=== PATIENT | male | born 1975 | race Caucasian/White ===

== ENCOUNTER 2020-06-24 04:48 | Emergency (ER) | payer SELFPAY ==
[~2020-06-24] VITALS: Ht 167.7 cm; Wt 68.9 kg
[2020-06-24 05:12] LABS: BILIRUBIN,URINE 1+ (NEGATIVE); CLARITY,URINE SL CLOUDY; COLOR,URINE YELLOW; GLUCOSE, URINE (UA) NEGATIVE (NEGATIVE); KETONES,URINE NEGATIVE (NEGATIVE); LEUKOCYTE ESTERASE ,URINE NEGATIVE (NEGATIVE); NITRITE,URINE NEGATIVE (NEGATIVE); PH,URINE 5.5 (5-9); PROTEIN,URINE 1+ (NEGATIVE)
--- NOTE | 2020-06-24 05:29 | ED GU-Male ---
General Chief Complaint: - Urinary Stated Complaint: HUERTA WHEN URINATING Nursing Triage Note: Pt arrived by private vehicle with chief complaint of burning when urinating. Pt was alert, oriented x 4 and ambulatory. At arrival, patient gave a urine sample, then when to room 10. Pt stated he started having burning when urinating 3 days ago. Pt stated the pain comes and goes, but currently does not have any pain. Pt stated maybe he is dehydrated. When asking about sexual intercourse, he stated with the lady next door. Patient denies past medical history and allergies to medications. Pt denies smoking, drinking alcohol, but does use meth and marijuana. Source: patient Exam Limitations: no limitations History of Present Illness Date Seen by Provider: Jun 24, 2020 Time Seen by Provider: 05:02 Initial Comments Patient presents ER by private conveyance with chief complaint he has been having intercourse past 3 or 4 days with a person who has had some discharge. He's had some mild dysuria but nothing severe. No swelling in the lymph nodes. No history of STDs. No hematuria. Allergies and Home Medications Allergies Coded Allergies: No Known Drug Allergies (Unverified , 06/24/20) Home Medications Metronidazole 500 Mg Tablet, 500 MG PO BID Prescribed by: ROBIN FARR on 06/24/20 0550 Patient Home Medication List Home Medication List Reviewed: Yes Review of Systems Review of Systems Constitutional: No chills, No fever EENTM: No ear discharge, No ear pain Respiratory: No cough, No short of breath Cardiovascular: No chest pain, No palpitations Gastrointestinal: No abdominal pain, No nausea Genitourinary: see HPI; denies discharge; dysuria All Other Systemes Reviewed Negative Unless Noted: Yes Past Nlmvqgt-Pkqetp-Ogcgey Hx Patient Social History Alcohol Use: Denies Use Recreational Drug Use: Yes (Meth, marijuana) Smoking Status: Never a Smoker 2nd Hand Smoke Exposure: No Recent Foreign Travel: No Contact w/Someone Who Travel: No Recent Infectious Disease Expo: No Recent Hopitalizations: No Physical Abuse: No Sexual Abuse: No Mistreated: No Fear: No Seasonal Allergies Seasonal Allergies: No Past Medical History Surgeries: No Respiratory: No Cardiac: No Neurological: No Genitourinary: No Gastrointestinal: No Musculoskeletal: No Endocrine: No HEENT: No Cancer: No Psychosocial: No Integumentary: No Blood Disorders: No Physical Exam Vital Signs Vital Signs - First Documented 06/24/20 05:05 Temp 35.5 Pulse 105 Resp 16 B/P (MAP) 158/103 (121) Pulse Ox 99 O2 Delivery Room Air Capillary Refill : Less Than 3 Seconds Height, Weight, BMI Height: '" Weight: lbs. oz. kg; 24.00 BMI Method: General Appearance: WD/WN, no apparent distress HEENT: PERRL/EOMI, pharynx normal Neck: non-tender, full range of motion Cardiovascular: normal peripheral pulses, regular rate, rhythm, tachycardia Respiratory: no respiratory distress, no accessory muscle use Neurologic/Psychiatric: alert, oriented x 3, other (mildly anxious affect) Progress/Results/Core Measures Suspected Sepsis Recent Fever Within 48 Hours: No Infection Criteria Present: None New/Unexplained Altered Menta: No Sepsis Screen: No Definite Risk SIRS Temperature: Pulse: 105 Respiratory Rate: 16 Blood Pressure 158 /103 Mean: 121 Results/Orders Lab Results Laboratory Tests Test 06/24/20 04:55 Range/Units Urine Color YELLOW Urine Clarity SL CLOUDY Urine pH 5.5 5-9 Urine Specific Mcgrath >=1.030 1.016-1.022 Urine Protein 1+ H NEGATIVE Urine Glucose (UA) NEGATIVE NEGATIVE Urine Ketones NEGATIVE NEGATIVE Urine Nitrite NEGATIVE NEGATIVE Urine Bilirubin 1+ H NEGATIVE Urine Urobilinogen 0.2 < = 1.0 MG/DL Urine Leukocyte Esterase NEGATIVE NEGATIVE Urine RBC (Auto) 3+ H NEGATIVE Urine RBC 10-25 H /HPF Urine WBC 0-2 /HPF Urine Squamous Epithelial Cells 0-2 /HPF Urine Crystals NONE /LPF Urine Bacteria MODERATE H /HPF Urine Casts NONE /LPF Urine Mucus LARGE H /LPF Urine Trichomonas FEW H /HPF Urine Culture Indicated YES My Orders Orders - ROBIN FARR Ua Culture If Indicated (06/24/20 04:50) Neis Rui Dna Urine Test (06/24/20 05:15) Chlamydia Trachomatis Urine (06/24/20 05:15) Syphilis Antibody Screen (06/24/20 05:15) Ceftriaxone For Im Use (Rocephin For Im (06/24/20 05:30) Lidocaine 1% Inj 20 Ml (Xylocaine 1% Inj (06/24/20 05:30) Azithromycin Tablet (Zithromax Tablet) (06/24/20 05:30) Urine Culture (06/24/20 04:55) Medications Given in ED Current Medications Medications Dose Ordered Sig/Randolph Route Start Time Stop Time Status Last Admin Dose Admin Azithromycin 1,000 mg ONCE ONCE PO 06/24/20 05:30 06/24/20 05:31 DC 06/24/20 05:51 1,000 MG Ceftriaxone Sodium 250 mg ONCE ONCE IM 06/24/20 05:30 06/24/20 05:31 DC 06/24/20 05:50 250 MG Lidocaine HCl 0.9 ml ONCE ONCE INJ 06/24/20 05:30 06/24/20 05:31 DC 06/24/20 05:50 0.9 ML Vital Signs/I&O 06/24/20 05:05 Temp 35.5 Pulse 105 Resp 16 B/P (MAP) 158/103 (121) Pulse Ox 99 O2 Delivery Room Air Capillary Refill : Less Than 3 Seconds Blood Pressure Mean: 121 Progress Note : Time: 05:29 Progress Note RPR, and urine GC and chlamydia. We'll give him a Rocephin and azithromycin. Departure Impression Primary Impression: STI (sexually transmitted infection) Additional Impression: infection, trichomonal Disposition: 01 HOME, SELF-CARE Condition: Stable Departure-Patient Inst. Decision time for Depature: 05:30 Referrals: NO,LOCAL PHYSICIAN (PCP/Family) Primary Care Physician Patient Instructions: Sexually-Transmitted Diseases, Trichomoniasis (DC) Add. Discharge Instructions: You been tested for some STDs and will not have the results available until next week. You been given antibiotics to cover these STDs. 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 If your symptoms come back or worsen then you should follow-up with the health department. All discharge instructions reviewed with patient and/or family. Voiced understanding. Scripts Metronidazole (Flagyl) 500 Mg Tablet 500 MG PO BID for 7 Days, #14 TAB 0 Refills Prov: ROBIN FARR 06/24/20 ROBIN FARR Jun 24, 2020 05:29
[2020-06-24] MEDS ORDERED: cefTRIAXone 250 MG/ML vial (IM ONLY) IM ONE (05:30)
[2020-06-24] MEDS ORDERED: LIDOCAINE 1% INJ 20 ML 20 ML VIAL INJ ONE (05:30)
[2020-06-24] MEDS ORDERED: AZITHROMYCIN 250 MG TAB (ZITHROMAX) PO ONE (05:30)
[2020-06-24 05:42] LABS: BACTERIA,URINE MODERATE /HPF; SQUAMOUS EPITHELIAL CELL,UR 0-2 /HPF; WBC,URINE 0-2 /HPF
[2020-06-24 05:43] LABS: TRICHOMONAS,URINE FEW /HPF
[2020-06-24] MEDS ORDERED: METR500T PO (05:50)
[2020-06-24 06:00] VITALS: BP 162/105
== END 2020-06-24 06:00 | disposition home or self-care (01) ==
LOC: ER 04:53
DX: A64 Unspecified sexually transmitted disease (principal); A59.9 Trichomoniasis, unspecified
CPT/HCPCS: 36415; 81000; 86780; 87088; 87491; 87591; 99284